=== PATIENT | male | born 1965 | race Caucasian/White ===

== ENCOUNTER 2018-04-26 14:54 | Outpatient (CLI) | END 2018-04-26 15:26 | disposition short-term general hospital (02) | LOC: AMBL 14:54 | PROVIDERS: ATTEND Internal Medicine | DX: R55 Syncope and collapse (principal); R10.30 Lower abdominal pain, unspecified; R11.2 Nausea with vomiting, unspecified; R19.7 Diarrhea, unspecified; R50.9 Fever, unspecified; R82.90 Unspecified abnormal findings in urine; R33.9 Retention of urine, unspecified ==